=== PATIENT | male | born 1940 | race Caucasian/White ===

== ENCOUNTER → 2016-12-11 | Outpatient (CLI) | payer OTHER ==
[~2016-12-11] VITALS: Ht 160 cm; Wt 52.2 kg
[~2016-12-11] MED LIST: BREO ELLIPTA 21 EACH IH; CENTRUM SILVER1 EAC1 PO; CYANOCOBALAM1000 MCG PO; FLOMAX0.4 MG PO; INCRUSE ELLI62.5 MCG IH; NEXIUM40 MG PO; OCUVITE TABLET1 EACH PO; SERTRALINE HCL50 MG PO; VITAMIN D-32000 UNI1 PO
[2016-12-11 11:05] LABS: HEMATOCRIT 37.6 % (38.0-50.0); MCH 30.4 PG (29.0-34.0); MCHC 31.6 G/DL (30.0-36.0); MCV 95.9 FL (86-99); PLATELET COUNT 376 K/uL (156-360); RBC DIS.WIDTH-CV 14.4 % (11.8-14.6); RBC DIS.WIDTH-SD 50.1 % (39-53); RED BLOOD COUNT 3.92 M/uL (4.00-5.50); WHITE BLOOD COUNT 16.5 K/uL (4.1-10.2)
[2016-12-11 11:14] LABS: INTER. NORMALIZED RATIO 1.2; PTT 34.3 (25-32)
== END | disposition home or self-care (01) ==
LOC: AMB 10:27
PROVIDERS: Internal Medicine Pulmonary Disease
DX: J18.9 Pneumonia, unspecified organism (principal); J44.9 Chronic obstructive pulmonary disease, unspecified; Z87.891 Personal history of nicotine dependence; Z85.01 Personal history of malignant neoplasm of esophagus
CPT/HCPCS: 71010; 76001; 85027; 85610; 85730; 87070; 87102; 87116; 87205; 87206; 87278; 88108; 88305; J2250; J3010

== ENCOUNTER 2017-01-19 19:01 | Observation (INO) | payer OTHER ==
[~2017-01-19] VITALS: Ht 160 cm; Wt 48.4 kg
[2017-01-19 19:38] LABS: HEMATOCRIT 36.8 % (38.0-50.0); MCH 30.9 PG (29.0-34.0); MCHC 32.9 G/DL (30.0-36.0); MCV 94.1 FL (86-99); MEAN PLAT.VOLUME 8.1 uM^3 (9.0-12.4); PLATELET COUNT 353 K/uL (156-360); RBC DIS.WIDTH-CV 13.7 % (11.8-14.6); RBC DIS.WIDTH-SD 47.4 % (39-53); RED BLOOD COUNT 3.91 M/uL (4.00-5.50); WHITE BLOOD COUNT 13.9 K/uL (4.1-10.2)
[2017-01-19 19:48] LABS: CHLORIDE 102 mEq/L (99-109); SODIUM 131 mEq/L (136-147)
[2017-01-19 19:50] LABS: GLUCOSE 126 mg/dL (70-99)
[2017-01-19 19:51] LABS: ANION GAP 8 MEQ/L (2-14)
[2017-01-19 19:53] LABS: GFR ESTIMATE (CALCULATED) 48 mL/min/
[2017-01-19 19:54] LABS: UREA NITROGEN (BUN) 33 mg/dL (9-23)
[2017-01-19] MEDS ORDERED: BREO ELLIPTA I1 EACH IH (21:19)
[2017-01-19] MEDS ORDERED: VITAMIN D32000 UNI1 PO (21:19)
[2017-01-19] MEDS ORDERED: INCRUSE ELLI62.5 MCG IH (21:20)
[2017-01-19] MEDS ORDERED: PEN-VEE K,VEET500 MG PO (21:20)
[2017-01-19] MEDS ORDERED: CIPRO500 MG PO (21:20)
[2017-01-19] MEDS ORDERED: IPRATROPIUM BRO15 ML BOTH NARES (21:20)
[2017-01-19] MEDS ORDERED: VENTOLIN HFA18 GM IH (21:21)
[2017-01-20] VITALS: BP 107/57
[2017-01-20 04:12] VITALS: BP 100/57
[2017-01-20 05:51] LABS: HEMATOCRIT 32.1 % (38.0-50.0); MCH 31.2 PG (29.0-34.0); MCHC 32.4 G/DL (30.0-36.0); MCV 96.4 FL (86-99); MEAN PLAT.VOLUME 8.6 uM^3 (9.0-12.4); PLATELET COUNT 321 K/uL (156-360); RBC DIS.WIDTH-CV 13.8 % (11.8-14.6); RBC DIS.WIDTH-SD 49.1 % (39-53); RED BLOOD COUNT 3.33 M/uL (4.00-5.50); WHITE BLOOD COUNT 9.3 K/uL (4.1-10.2)
[2017-01-20 06:16] LABS: ALKALINE PHOSPHATASE 111 IU/L (3-129); ANION GAP 5 MEQ/L (2-14); CHLORIDE 107 MEQ/L (99-109); GFR ESTIMATE (CALCULATED) > 59 mL/min/; GLUCOSE 134 mg/dL (70-99); POTASSIUM 4.3 MEQ/L (3.7-5.4); SAMPLE HEMOLYSIS CHECK 0; SAMPLE ICTERIC CHECK 0; SAMPLE LIPEMIA CHECK 0; SODIUM 134 MEQ/L (136-147); TOTAL BILIRUBIN 0.3 MG/DL (0.0-1.0); UREA NITROGEN (BUN) 28 mg/dL (9-23)
[2017-01-20 08:00] VITALS: BP 98/59
[2017-01-20 12:00] VITALS: BP 99/58
== END 2017-01-20 16:17 | disposition home or self-care (01) ==
LOC: EME 19:01 → EDOF 22:10 → 5SOUTH 23:42
PROVIDERS: Internal Medicine
DX: N17.9 Acute kidney failure, unspecified (principal); J18.9 Pneumonia, unspecified organism; R63.4 Abnormal weight loss; E86.0 Dehydration; Z87.19 Personal history of other diseases of the digestive system; Z93.2 Ileostomy status; E87.1 Hypo-osmolality and hyponatremia; D64.9 Anemia, unspecified; J47.9 Bronchiectasis, uncomplicated; R91.8 Other nonspecific abnormal finding of lung field; Z85.01 Personal history of malignant neoplasm of esophagus; J44.9 Chronic obstructive pulmonary disease, unspecified; F32.9 Major depressive disorder, single episode, unspecified
CPT/HCPCS: 71020; 80048; 80053; 81003; 82948; 85027; 94640; 94640 76; 99202; 99281; 99285; G0378; J1644; J7030; S0028

== ENCOUNTER 2017-01-29 19:24 | Inpatient (IN) | payer OTHER ==
[~2017-01-29] VITALS: Ht 160 cm; Wt 48.0 kg
[~2017-01-29 19:24] MED LIST changes: +BREO ELLIPTA I1 EACH IH; +CIPRO500 MG PO; +IPRATROPIUM BRO15 ML BOTH NARES; +PEN-VEE K,VEET500 MG PO; +VENTOLIN HFA18 GM IH; +VITAMIN D32000 UNI1 PO
[2017-01-29 20:28] LABS: HEMATOCRIT 37.5 % (38.0-50.0); MCH 30.1 PG (29.0-34.0); MCHC 32.3 G/DL (30.0-36.0); MCV 93.3 FL (86-99); MEAN PLAT.VOLUME 8.3 uM^3 (9.0-12.4); PLATELET COUNT 389 K/uL (156-360); RBC DIS.WIDTH-CV 13.2 % (11.8-14.6); RBC DIS.WIDTH-SD 45.2 % (39-53); WHITE BLOOD COUNT 16.3 K/uL (4.1-10.2)
[2017-01-29 20:34] LABS: RED BLOOD COUNT 4.02 M/uL (4.00-5.50)
[2017-01-29 20:38] LABS: CHLORIDE 102 mEq/L (99-109); POTASSIUM 4.2 mEq/L (3.7-5.4); SODIUM 132 mEq/L (136-147)
[2017-01-29 20:40] LABS: GLUCOSE 113 mg/dL (70-99)
[2017-01-29 20:41] LABS: ANION GAP 10 MEQ/L (2-14)
[2017-01-29 20:44] LABS: GFR ESTIMATE (CALCULATED) 57 mL/min/; UREA NITROGEN (BUN) 30 mg/dL (9-23)
[2017-01-29 22:16] LABS: TROP-I INTERPRETATION NEGATIVE; TROPONIN-I 0.01 ng/mL (0.0-0.30)
[2017-01-29] MEDS ORDERED: REFRESH EYE DR1 EACH BOTH EYES (23:33)
[2017-01-30] VITALS (7 sets, daily range): BP systolic 82–110; BP diastolic 46–59
[2017-01-30 00:40] LABS: TOTAL BILIRUBIN 0.2 mg/dL (0.0-1.0)
[2017-01-30 00:41] LABS: ALKALINE PHOSPHATASE 150 IU/L (3-129)
[2017-01-30 00:44] LABS: DIRECT BILIRUBIN 0.2 mg/dL (0.0-0.3)
[2017-01-30 04:00] LABS: ADD MIUA? YES; BILIRUBIN NEGATIVE; BLOOD NEGATIVE; COLOR YELLOW ((YELLOW)); GLUCOSE (STRIP) NEGATIVE; KETONES 5; LEUKOCYTES NEGATIVE; NITRITE NEGATIVE; PROTEIN (STRIP) NEGATIVE; SPECIFIC GRAVITY 1.042 (1.000-1.030); UROBILINOGEN 0.2 MG/DL (0.2-1.0)
[2017-01-30 04:04] LABS: BACTERIA 2+ /HPF; EPITHELIAL CELLS NONE SEEN /HPF; HYALINE CASTS 0-5 /LPF; MUCUS TRACE /LPF; WHITE BLOOD CELLS 0-5 /HPF (0-5)
[2017-01-30 04:25] LABS: EOSINOPHIL (%) 0.2 % (0-5); HEMATOCRIT 30.9 % (38.0-50.0); IMMATURE GRANULOCYTE (%) 1.6 % (0.0-0.7); IMMATURE GRANULOCYTE COUNT 0.2 K/uL; INSTRUMENT ABS NEUTROPHIL CT 11.9 K/uL; LYMPHOCYTE COUNT 0.5 K/uL (1.0-2.8); MCH 30.5 PG (29.0-34.0); MCHC 32.4 G/DL (30.0-36.0); MCV 94.2 FL (86-99); MEAN PLAT.VOLUME 8.2 uM^3 (9.0-12.4); MONOCYTE (%) 5.7 % (3-12); MONOCYTE COUNT 0.8 K/uL (0-0.8); NEUTROPHIL (%) 88.8 % (45-76); NEUTROPHIL COUNT 11.9 K/uL (1.8-6.4); PLATELET COUNT 333 K/uL (156-360); RBC DIS.WIDTH-CV 13.4 % (11.8-14.6); RBC DIS.WIDTH-SD 46.5 % (39-53); RED BLOOD COUNT 3.28 M/uL (4.00-5.50); WHITE BLOOD COUNT 13.4 K/uL (4.1-10.2)
[2017-01-30 04:30] LABS: CHLORIDE 108 mEq/L (99-109); POTASSIUM 3.9 mEq/L (3.7-5.4); SODIUM 133 mEq/L (136-147)
[2017-01-30 04:31] LABS: MAGNESIUM 1.3 mg/dL (1.3-2.7)
[2017-01-30 04:32] LABS: GLUCOSE 104 mg/dL (70-99)
[2017-01-30 04:33] LABS: ANION GAP 7 MEQ/L (2-14)
[2017-01-30 04:36] LABS: GFR ESTIMATE (CALCULATED) > 59 mL/min/
[2017-01-30 04:37] LABS: UREA NITROGEN (BUN) 23 mg/dL (9-23)
[2017-01-30 07:55] LABS: INTACT PARATHYROID HORMONE 12 pg/mL (10-69)
[2017-01-31 05:34] LABS: HEMATOCRIT 29.2 % (38.0-50.0); MCH 30.9 PG (29.0-34.0); MCHC 32.5 G/DL (30.0-36.0); MCV 95.1 FL (86-99); MEAN PLAT.VOLUME 8.5 uM^3 (9.0-12.4); PLATELET COUNT 318 K/uL (156-360); RBC DIS.WIDTH-CV 13.7 % (11.8-14.6); RBC DIS.WIDTH-SD 47.5 % (39-53); RED BLOOD COUNT 3.07 M/uL (4.00-5.50); WHITE BLOOD COUNT 9.5 K/uL (4.1-10.2)
[2017-01-31 05:43] VITALS: BP 98/54
[2017-01-31 05:55] LABS: ANION GAP 6 MEQ/L (2-14); CHLORIDE 112 MEQ/L (99-109); GFR ESTIMATE (CALCULATED) > 59 mL/min/; GLUCOSE 105 mg/dL (70-99); POTASSIUM 3.5 MEQ/L (3.7-5.4); SAMPLE HEMOLYSIS CHECK 0; SAMPLE ICTERIC CHECK 0; SAMPLE LIPEMIA CHECK 0; SODIUM 138 MEQ/L (136-147); UREA NITROGEN (BUN) 15 mg/dL (9-23)
[2017-01-31 08:00] VITALS: BP 111/58
[2017-01-31 11:25] VITALS: BP 111/56
[2017-01-31 16:32] VITALS: BP 125/57
[2017-01-31 21:16] VITALS: BP 99/55
[2017-02-01 01:57] VITALS: BP 97/56
[2017-02-01 03:19] VITALS: BP 101/58
[2017-02-01 04:19] VITALS: BP 115/56
[2017-02-01 07:43] VITALS: BP 104/59
[2017-02-01 14:12] VITALS: BP 104/62
[2017-02-01] MEDS ORDERED: MIDODRINE HCL5 MG PO (14:15)
[2017-02-01] MEDS ORDERED: VORICONAZOLE200 MG PO (14:15)
[2017-02-01] MEDS ORDERED: MEGACE20 MG PO (14:15)
[2017-02-03 18:14] LABS: Coccidioides Ab, CF <1:2 (<1:2); Coccidioides Ab, ID Negative (Negative)
== END 2017-02-01 15:31 | disposition home or self-care (01) | DRG 682 ==
LOC: EME 19:24 → 5WEST 01-30 00:06 → EDOF 01-30 00:06 → 5WEST 01-30 01:00
PROVIDERS: Emergency Medicine; Hospitalist; Nurse Practitioner Adult Health
DX: N17.9 Acute kidney failure, unspecified (principal); J85.1 Abscess of lung with pneumonia; J85.0 Gangrene and necrosis of lung; J18.0 Bronchopneumonia, unspecified organism; I95.9 Hypotension, unspecified; E87.1 Hypo-osmolality and hyponatremia; J47.0 Bronchiectasis with acute lower respiratory infection; J44.0 Chronic obstructive pulmonary disease with (acute) lower respiratory infection; R55 Syncope and collapse; R63.4 Abnormal weight loss; E83.52 Hypercalcemia; E86.0 Dehydration; I77.810 Thoracic aortic ectasia; K21.9 Gastro-esophageal reflux disease without esophagitis; Z68.1 Body mass index [BMI] 19.9 or less, adult; Z80.1 Family history of malignant neoplasm of trachea, bronchus and lung; Z85.01 Personal history of malignant neoplasm of esophagus; Z87.891 Personal history of nicotine dependence; Z93.3 Colostomy status; M19.90 Unspecified osteoarthritis, unspecified site; R63.0 Anorexia
CPT/HCPCS: 71010; 71020; 71275; 77012; 80048; 80076; 81003; 82306; 83605; 83735; 83970; 84100; 84484; 85025; 85027; 86635 90; 87040; 87070; 87075; 87102; 87116; 87205; 87206; 87899; 88305; 88312; 93005; 99202; 99281; 99285; G0378; G8978 GP CI; G8979 GP CH; G8987 GO CH; G8988 GO CH; G8989 GO CH; J0456; J0696; J1644; J3010; J3475; J7030; J7050

== ENCOUNTER 2017-02-28 17:09 | Inpatient (IN) | payer OTHER ==
[~2017-02-28] VITALS: Ht 160 cm; Wt 50.4 kg
[~2017-02-28 17:09] MED LIST changes: +MEGACE20 MG PO; +MIDODRINE HCL5 MG PO; +REFRESH EYE DR1 EACH BOTH EYES; +VORICONAZOLE200 MG PO
[2017-02-28 18:28] LABS: HEMATOCRIT 29.2 % (38.0-50.0); MCH 29.3 PG (29.0-34.0); MCHC 32.2 G/DL (30.0-36.0); MEAN PLAT.VOLUME 8.8 uM^3 (9.0-12.4); PLATELET COUNT 443 K/uL (156-360); RBC DIS.WIDTH-SD 46.7 % (39-53); RED BLOOD COUNT 3.21 M/uL (4.00-5.50); WHITE BLOOD COUNT 19.9 K/uL (4.1-10.2)
[2017-02-28 18:34] LABS: CHLORIDE 105 mEq/L (99-109); POTASSIUM 4.2 mEq/L (3.7-5.4); SODIUM 133 mEq/L (136-147)
[2017-02-28 18:35] LABS: GLUCOSE 171 mg/dL (70-99)
[2017-02-28 18:37] LABS: ANION GAP 9 MEQ/L (2-14)
[2017-02-28 18:39] LABS: GFR ESTIMATE (CALCULATED) > 59 mL/min/
[2017-02-28 18:40] LABS: UREA NITROGEN (BUN) 33 mg/dL (9-23)
[2017-02-28 21:35] LABS: ADD MIUA? YES; BILIRUBIN NEGATIVE; BLOOD NEGATIVE; COLOR YELLOW ((YELLOW)); GLUCOSE (STRIP) NEGATIVE; KETONES NEGATIVE; LEUKOCYTES NEGATIVE; NITRITE NEGATIVE; PROTEIN (STRIP) 100; SPECIFIC GRAVITY 1.018 (1.000-1.030); UROBILINOGEN 0.2 MG/DL (0.2-1.0)
[2017-02-28 22:00] LABS: RED BLOOD CELLS 0-5 /HPF (0-5)
[2017-02-28 22:02] LABS: BACTERIA RARE /HPF; CASTS PRESENT /LPF; CRYSTALS NONE SEEN; MUCUS NONE SEEN /LPF; UCUL ADDED? NO; WHITE BLOOD CELLS 0-5 /HPF (0-5)
[2017-02-28 22:03] LABS: HYALINE CASTS 0-5 /LPF
[2017-02-28 22:04] LABS: EPITHELIAL CELLS 1+ /HPF
[2017-02-28 22:40] LABS: TOTAL BILIRUBIN 0.3 mg/dL (0.0-1.0)
[2017-02-28 22:41] LABS: ALKALINE PHOSPHATASE 177 IU/L (3-129)
[2017-02-28 22:44] LABS: DIRECT BILIRUBIN 0.2 mg/dL (0.0-0.3)
[2017-02-28] MEDS ORDERED: FLOMAX0.4 MG PO (23:12)
[2017-03-01 01:32] VITALS: BP 107/63
[2017-03-01 03:41] VITALS: BP 110/82
[2017-03-01 06:32] LABS: EOSINOPHIL (%) 0.5 % (0-5); EOSINOPHIL COUNT 0.1 K/uL (0-0.3); HEMATOCRIT 26.9 % (38.0-50.0); IMMATURE GRANULOCYTE COUNT 0.1 K/uL; INSTRUMENT ABS NEUTROPHIL CT 11.5 K/uL; LYMPHOCYTE COUNT 0.7 K/uL (1.0-2.8); MCH 29.5 PG (29.0-34.0); MCV 92.1 FL (86-99); MEAN PLAT.VOLUME 8.9 uM^3 (9.0-12.4); MONOCYTE (%) 5.5 % (3-12); MONOCYTE COUNT 0.7 K/uL (0-0.8); NEUTROPHIL (%) 87.2 % (45-76); NEUTROPHIL COUNT 11.5 K/uL (1.8-6.4); PLATELET COUNT 405 K/uL (156-360); RBC DIS.WIDTH-CV 13.9 % (11.8-14.6); RBC DIS.WIDTH-SD 47.5 % (39-53); RED BLOOD COUNT 2.92 M/uL (4.00-5.50); WHITE BLOOD COUNT 13.1 K/uL (4.1-10.2)
[2017-03-01 06:47] LABS: POINT-OF-CARE METER ID UU14117124
[2017-03-01 06:56] LABS: ALKALINE PHOSPHATASE 133 IU/L (3-129); ANION GAP 6 MEQ/L (2-14); CHLORIDE 109 MEQ/L (99-109); GFR ESTIMATE (CALCULATED) > 59 mL/min/; HDL CHOLESTEROL 32 MG/DL (Desirable>=40); IRON 18 MCG/DL (35-150); LDL CHOLESTEROL 53 mg/dL (Desirable<100); MAGNESIUM 1.8 mg/dl (1.3-2.7); NON-HDL CHOLESTEROL 65 mg/dL (Desirable<160); POTASSIUM 4.6 MEQ/L (3.7-5.4); SAMPLE HEMOLYSIS CHECK 0; SAMPLE ICTERIC CHECK 0; SAMPLE LIPEMIA CHECK 0; SODIUM 138 MEQ/L (136-147); TOTAL BILIRUBIN 0.4 MG/DL (0.0-1.0); TOTAL CHOLESTEROL 97 mg/dL (Desirable<200); TRIGLYCERIDES 61 MG/DL (Normal: <150); UREA NITROGEN (BUN) 27 mg/dL (9-23)
[2017-03-01 06:58] LABS: GLUCOSE 90 mg/dL (70-99)
[2017-03-01 07:09] LABS: Estimated Average Glucose 140 mg/dL (70-123); HEMOGLOBIN A1c (GLYCOHEMOGLOB) 6.5 % HGB (Below 5.7)
[2017-03-01 07:28] VITALS: BP 107/59
[2017-03-01 11:15] VITALS: BP 104/59
[2017-03-01 14:26] LABS: POC NON-PRINT COM 1 ND
[2017-03-01 15:37] VITALS: BP 96/52
[2017-03-01 19:35] VITALS: BP 103/55
[2017-03-02 01:05] VITALS: BP 104/57
[2017-03-02 05:06] VITALS: BP 103/59
[2017-03-02 08:41] VITALS: BP 106/67
[2017-03-02 12:28] VITALS: BP 113/65
[2017-03-02 16:26] VITALS: BP 108/57
[2017-03-02 23:11] VITALS: BP 126/70
[2017-03-03 04:21] VITALS: BP 111/74
[2017-03-03 06:37] LABS: HEMATOCRIT 23.5 % (38.0-50.0); MCH 28.8 PG (29.0-34.0); MCHC 31.5 G/DL (30.0-36.0); MCV 91.4 FL (86-99); MEAN PLAT.VOLUME 8.8 uM^3 (9.0-12.4); PLATELET COUNT 353 K/uL (156-360); RBC DIS.WIDTH-CV 14.1 % (11.8-14.6); RBC DIS.WIDTH-SD 47.6 % (39-53); RED BLOOD COUNT 2.57 M/uL (4.00-5.50); WHITE BLOOD COUNT 12.5 K/uL (4.1-10.2)
[2017-03-03 07:03] LABS: ANION GAP 4 MEQ/L (2-14); CHLORIDE 108 MEQ/L (99-109); GFR ESTIMATE (CALCULATED) > 59 mL/min/; POTASSIUM 4.1 MEQ/L (3.7-5.4); SAMPLE HEMOLYSIS CHECK 0; SAMPLE ICTERIC CHECK 0; SAMPLE LIPEMIA CHECK 0; SODIUM 137 MEQ/L (136-147); UREA NITROGEN (BUN) 29 mg/dL (9-23)
[2017-03-03 07:04] LABS: GLUCOSE 180 mg/dL (70-99)
[2017-03-03 08:35] VITALS: BP 117/60
[2017-03-03 12:14] VITALS: BP 104/56
[2017-03-03 16:30] VITALS: BP 125/60
[2017-03-03 23:27] VITALS: BP 108/58
[2017-03-04 07:48] LABS: HEMATOCRIT 24.8 % (38.0-50.0); MCH 30.5 PG (29.0-34.0); MCHC 32.7 G/DL (30.0-36.0); MCV 93.2 FL (86-99); MEAN PLAT.VOLUME 8.9 uM^3 (9.0-12.4); PLATELET COUNT 386 K/uL (156-360); RBC DIS.WIDTH-CV 14.2 % (11.8-14.6); RBC DIS.WIDTH-SD 48.1 % (39-53); RED BLOOD COUNT 2.66 M/uL (4.00-5.50); WHITE BLOOD COUNT 15.8 K/uL (4.1-10.2)
[2017-03-04 08:16] LABS: ANION GAP 8 MEQ/L (2-14); CHLORIDE 108 MEQ/L (99-109); GFR ESTIMATE (CALCULATED) > 59 mL/min/; GLUCOSE 147 mg/dL (70-99); POTASSIUM 3.9 MEQ/L (3.7-5.4); SAMPLE HEMOLYSIS CHECK 0; SAMPLE ICTERIC CHECK 0; SAMPLE LIPEMIA CHECK 0; SODIUM 139 MEQ/L (136-147); UREA NITROGEN (BUN) 27 mg/dL (9-23)
[2017-03-04 08:44] VITALS: BP 121/58
[2017-03-04] MEDS ORDERED: FERROUS SULFAT325 MG PO (16:11)
[2017-03-04 16:21] VITALS: BP 110/61
[2017-03-04] MEDS ORDERED: VFEND50 MG PO (18:02)
== END 2017-03-04 19:33 | disposition home or self-care (01) | DRG 190 ==
LOC: EME 17:09 → 3EAST 21:23 → EDOF 21:23 → ENRESERV 21:25 → 3EAST 23:24
PROVIDERS: Emergency Medicine; Hospitalist; Internal Medicine; Physician Assistant; Physician Assistant Medical
DX: J44.0 Chronic obstructive pulmonary disease with (acute) lower respiratory infection (principal); J16.8 Pneumonia due to other specified infectious organisms; J85.0 Gangrene and necrosis of lung; B44.9 Aspergillosis, unspecified; J15.9 Unspecified bacterial pneumonia; E46 Unspecified protein-calorie malnutrition; J47.0 Bronchiectasis with acute lower respiratory infection; L98.9 Disorder of the skin and subcutaneous tissue, unspecified; Z85.01 Personal history of malignant neoplasm of esophagus; D64.9 Anemia, unspecified; N40.0 Benign prostatic hyperplasia without lower urinary tract symptoms; E87.1 Hypo-osmolality and hyponatremia; R73.9 Hyperglycemia, unspecified; I95.9 Hypotension, unspecified; R00.0 Tachycardia, unspecified; E86.0 Dehydration; Z68.1 Body mass index [BMI] 19.9 or less, adult; Z90.49 Acquired absence of other specified parts of digestive tract; Z93.2 Ileostomy status; Z87.891 Personal history of nicotine dependence; B47.9 Mycetoma, unspecified; K51.90 Ulcerative colitis, unspecified, without complications; J44.1 Chronic obstructive pulmonary disease with (acute) exacerbation; Z80.1 Family history of malignant neoplasm of trachea, bronchus and lung; Z79.899 Other long term (current) drug therapy; Z96.651 Presence of right artificial knee joint; Z96.642 Presence of left artificial hip joint; R65.10 Systemic inflammatory response syndrome (SIRS) of non-infectious origin without acute organ dysfunction
CPT/HCPCS: 36415; 71020; 80048; 80053; 80061; 80076; 81003; 82272; 82607; 82746; 82785 90; 82948; 83036; 83540; 83605; 83735; 84100; 84145 90; 84466; 85025; 85027; 86900; 86901; 86920; 87040; 87070; 87103; 87205; 87305 90; 94640; 94640 76; 99202; 99281; 99285; J1644; J1815; J1956; J2248; J2543; J2920; J7030; J7050; J7120

== ENCOUNTER 2017-08-29 16:02 | Emergency (ER) | payer OTHER ==
[~2017-08-29] VITALS: Ht 160 cm; Wt 61.9 kg
[~2017-08-29 16:02] MED LIST changes: +FERROUS SULFAT325 MG PO; +VFEND50 MG PO
[2017-08-29] MEDS ORDERED: ITRACONAZOLE100 MG PO (16:10)
[2017-08-29 16:36] LABS: HEMATOCRIT 29.3 % (38.0-50.0); HEMOGLOBIN 9.6 G/DL (12.5-16.6); MCH 30.7 PG (29.0-34.0); MCHC 32.8 G/DL (30.0-36.0); MCV 93.6 FL (86-99); PLATELET COUNT 219 K/uL (156-360); RBC DIS.WIDTH-CV 14.8 % (11.8-14.6); RBC DIS.WIDTH-SD 50.5 % (39-53); RED BLOOD COUNT 3.13 M/uL (4.00-5.50); WHITE BLOOD COUNT 10.9 K/uL (4.1-10.2)
[2017-08-29 16:45] LABS: CHLORIDE 109 mEq/L (99-109); MAGNESIUM 1.7 mg/dL (1.3-2.7); POTASSIUM 3.6 mEq/L (3.7-5.4); SODIUM 137 mEq/L (136-147)
[2017-08-29 16:47] LABS: GLUCOSE 99 mg/dL (70-99)
[2017-08-29 16:50] LABS: CREATININE 0.8 mg/dL (0.6-1.3); GFR ESTIMATE (CALCULATED) > 59 mL/min/ (58.99-99999)
[2017-08-29 16:51] LABS: UREA NITROGEN (BUN) 19 mg/dL (9-23)
[2017-08-29 16:57] LABS: TROP-I INTERPRETATION NEGATIVE; TROPONIN-I 0.02 ng/mL (0.0-0.30)
[2017-08-29] MEDS ORDERED: LEVAQUIN750 MG PO (19:58)
[2017-08-29 20:09] VITALS: BP 166/73
== END 2017-08-29 20:09 | disposition home or self-care (01) ==
LOC: EME 16:02
PROVIDERS: Emergency Medicine
DX: J18.9 Pneumonia, unspecified organism (principal); R60.0 Localized edema; R03.0 Elevated blood-pressure reading, without diagnosis of hypertension; Z87.01 Personal history of pneumonia (recurrent); Z85.01 Personal history of malignant neoplasm of esophagus; Z90.49 Acquired absence of other specified parts of digestive tract; Z93.2 Ileostomy status; Z87.891 Personal history of nicotine dependence
CPT/HCPCS: 71046; 80048; 83735; 84484; 85027; 93005; 99281; 99285

== ENCOUNTER 2018-01-27 16:43 | Inpatient (IN) | payer OTHER ==
[~2018-01-27] VITALS: Ht 160 cm; Wt 50.4 kg
[~2018-01-27 16:43] MED LIST changes: +AUGMENTIN875 MG PO; +ITRACONAZOLE100 MG PO; +KLOR-CON 88 MEQ PO; +LEVAQUIN750 MG PO; +OCUVITE LUTEIN1 EAC2 PO; +VITAMIN B122500 MCG PO
[2018-01-27 17:24] LABS: HEMOGLOBIN 10.4 G/DL (12.5-16.6); MCH 28.5 PG (29.0-34.0); MCHC 31.5 G/DL (30.0-36.0); MCV 90.4 FL (86-99); RBC DIS.WIDTH-CV 15.3 % (11.8-14.6); RBC DIS.WIDTH-SD 50.4 % (39-53); RED BLOOD COUNT 3.65 M/uL (4.00-5.50)
[2018-01-27 17:40] LABS: CHLORIDE 108 mEq/L (99-109); POTASSIUM 4.8 mEq/L (3.7-5.4); SODIUM 136 mEq/L (136-147)
[2018-01-27 17:42] LABS: GLUCOSE 102 mg/dL (70-99)
[2018-01-27 17:43] LABS: PLATELET COUNT 358 K/uL (156-360)
[2018-01-27 17:46] LABS: CREATININE 1.1 mg/dL (0.6-1.3); GFR ESTIMATE (CALCULATED) > 59 mL/min/ (58.99-99999)
[2018-01-27 17:47] LABS: UREA NITROGEN (BUN) 37 mg/dL (9-23)
[2018-01-27 23:29] VITALS: BP 132/68
[2018-01-28 03:29] VITALS: BP 100/57
[2018-01-28 06:31] LABS: BASOPHIL (%) 0.2 % (0-1); EOSINOPHIL (%) 0.4 % (0-5); EOSINOPHIL COUNT 0.1 K/uL (0-0.3); HEMOGLOBIN 10.6 G/DL (12.5-16.6); IMMATURE GRANULOCYTE (%) 0.7 % (0.0-0.7); LYMPHOCYTE (%) 4.9 % (15-42); LYMPHOCYTE COUNT 0.8 K/uL (1.0-2.8); MCHC 31.2 G/DL (30.0-36.0); MCV 89.7 FL (86-99); MONOCYTE (%) 4.5 % (3-12); MONOCYTE COUNT 0.7 K/uL (0-0.8); NEUTROPHIL (%) 89.3 % (45-76); NEUTROPHIL COUNT 14.4 K/uL (1.8-6.4); PLATELET COUNT 374 K/uL (156-360); RBC DIS.WIDTH-CV 15.4 % (11.8-14.6); RBC DIS.WIDTH-SD 50.4 % (39-53); RED BLOOD COUNT 3.79 M/uL (4.00-5.50); WHITE BLOOD COUNT 16.1 K/uL (4.1-10.2)
[2018-01-28 07:03] LABS: ALBUMIN 3.3 G/DL (3.2-4.8); ALKALINE PHOSPHATASE 152 IU/L (3-129); ALT (GPT) 11 IU/L (3-49); AST (GOT) 12 IU/L (2-34); CHLORIDE 106 MEQ/L (99-109); GFR ESTIMATE (CALCULATED) > 59 mL/min/ (58.99-99999); GLUCOSE 115 mg/dL (70-99); POTASSIUM 4.5 MEQ/L (3.7-5.4); SODIUM 137 MEQ/L (136-147); TOTAL PROTEIN 7.9 G/DL (6.4-8.3); UREA NITROGEN (BUN) 28 mg/dL (9-23)
[2018-01-28 07:03] LABS: ALBUMIN 3.4 G/DL (3.2-4.8); ALKALINE PHOSPHATASE 155 IU/L (3-129); ALT (GPT) 11 IU/L (3-49); AST (GOT) 12 IU/L (2-34); CHLORIDE 105 MEQ/L (99-109); CREATININE 0.9 MG/DL (0.6-1.3); DIRECT BILIRUBIN 0.1 mg/dL (0.0-0.3); GFR ESTIMATE (CALCULATED) > 59 mL/min/ (58.99-99999); GLUCOSE 117 mg/dL (70-99); MAGNESIUM 1.9 mg/dl (1.3-2.7); PHOSPHORUS 2.9 mg/dL (2.5-4.9); POTASSIUM 4.4 MEQ/L (3.7-5.4); PREALBUMIN 12.5 mg/dL (10-40); SODIUM 136 MEQ/L (136-147); TOTAL PROTEIN 8.3 G/DL (6.4-8.3); TRIGLYCERIDES 101 MG/DL (Normal: <150); UREA NITROGEN (BUN) 28 mg/dL (9-23)
[2018-01-28 07:04] LABS: TOTAL BILIRUBIN 0.5 MG/DL (0.0-1.0)
[2018-01-28 07:04] LABS: TOTAL BILIRUBIN 0.5 MG/DL (0.0-1.0)
[2018-01-28 07:15] LABS: APPEARANCE SL.HAZY ((CLEAR)); BILIRUBIN NEGATIVE; BLOOD LARGE; COLOR YELLOW ((YELLOW)); GLUCOSE (STRIP) NEGATIVE; KETONES 5; LEUKOCYTES NEGATIVE; NITRITE NEGATIVE; PROTEIN (STRIP) 30; SPECIFIC GRAVITY 1.046 (1.000-1.030); UROBILINOGEN 0.2 MG/DL (0.2-1.0)
[2018-01-28 07:36] LABS: BACTERIA NONE SEEN /HPF; CALCIUM OXALATE CRYSTALS 1+ /HPF; EPITHELIAL CELLS RARE /HPF; HYALINE CASTS 0-5 /LPF; MUCUS TRACE /LPF; RED BLOOD CELLS 40-50 /HPF (0-5); UCUL ADDED? NO; WHITE BLOOD CELLS 0-5 /HPF (0-5)
[2018-01-28 07:46] VITALS: BP 117/62
[2018-01-28 11:25] VITALS: BP 128/84
[2018-01-28] MEDS ORDERED: TAMSULOSIN HCL0.4 MG PO (12:00)
[2018-01-28] MEDS ORDERED: POTASSIUM CHLOR8 ME3 PO (12:00)
[2018-01-28] MEDS ORDERED: ADVIL,NUPRIN,M200 MG PO (12:02)
[2018-01-28 13:07] LABS: HEMATOCRIT 31.6 % (38.0-50.0); HEMOGLOBIN 9.7 G/DL (12.5-16.6)
[2018-01-28 15:55] VITALS: BP 108/57
[2018-01-28 23:03] VITALS: BP 124/68
[2018-01-29 06:33] LABS: BASOPHIL (%) 0.1 % (0-1); EOSINOPHIL (%) 0 % (0-5); HEMATOCRIT 28.7 % (38.0-50.0); LYMPHOCYTE (%) 4.1 % (15-42); LYMPHOCYTE COUNT 0.4 K/uL (1.0-2.8); MCH 28.2 PG (29.0-34.0); MCHC 31.4 G/DL (30.0-36.0); MONOCYTE (%) 1.3 % (3-12); MONOCYTE COUNT 0.1 K/uL (0-0.8); NEUTROPHIL (%) 93.5 % (45-76); NEUTROPHIL COUNT 8.3 K/uL (1.8-6.4); PLATELET COUNT 307 K/uL (156-360); RBC DIS.WIDTH-CV 15.3 % (11.8-14.6); RBC DIS.WIDTH-SD 50.2 % (39-53); RED BLOOD COUNT 3.19 M/uL (4.00-5.50); WHITE BLOOD COUNT 8.9 K/uL (4.1-10.2)
[2018-01-29 06:59] LABS: CHLORIDE 105 MEQ/L (99-109); CREATININE 0.8 MG/DL (0.6-1.3); GFR ESTIMATE (CALCULATED) > 59 mL/min/ (58.99-99999); MAGNESIUM 1.9 mg/dl (1.3-2.7); PHOSPHORUS 2.6 mg/dL (2.5-4.9); POTASSIUM 4.6 MEQ/L (3.7-5.4); SODIUM 133 MEQ/L (136-147); UREA NITROGEN (BUN) 29 mg/dL (9-23)
[2018-01-29 07:01] LABS: GLUCOSE 269 mg/dL (70-99)
[2018-01-29 08:25] VITALS: BP 127/64
[2018-01-29 16:33] VITALS: BP 151/84
[2018-01-29 23:21] VITALS: BP 145/67
[2018-01-30 06:39] LABS: BASOPHIL (%) 0.1 % (0-1); EOSINOPHIL (%) 0 % (0-5); HEMATOCRIT 24.9 % (38.0-50.0); HEMOGLOBIN 7.9 G/DL (12.5-16.6); LYMPHOCYTE (%) 3.1 % (15-42); LYMPHOCYTE COUNT 0.6 K/uL (1.0-2.8); MCH 28.4 PG (29.0-34.0); MCHC 31.7 G/DL (30.0-36.0); MCV 89.6 FL (86-99); MONOCYTE (%) 1.7 % (3-12); MONOCYTE COUNT 0.3 K/uL (0-0.8); NEUTROPHIL (%) 94.1 % (45-76); NEUTROPHIL COUNT 16.8 K/uL (1.8-6.4); PLATELET COUNT 285 K/uL (156-360); RBC DIS.WIDTH-CV 15.7 % (11.8-14.6); RBC DIS.WIDTH-SD 51.1 % (39-53); RED BLOOD COUNT 2.78 M/uL (4.00-5.50); WHITE BLOOD COUNT 17.8 K/uL (4.1-10.2)
[2018-01-30 07:05] LABS: CHLORIDE 106 MEQ/L (99-109); CREATININE 0.7 MG/DL (0.6-1.3); GFR ESTIMATE (CALCULATED) > 59 mL/min/ (58.99-99999); GLUCOSE 193 mg/dL (70-99); PHOSPHORUS 2.5 mg/dL (2.5-4.9); POTASSIUM 4.6 MEQ/L (3.7-5.4); SODIUM 135 MEQ/L (136-147); UREA NITROGEN (BUN) 32 mg/dL (9-23)
[2018-01-30 08:13] VITALS: BP 157/71
[2018-01-30 11:09] LABS: HEMATOCRIT 24.2 % (38.0-50.0); HEMOGLOBIN 7.6 G/DL (12.5-16.6)
[2018-01-30] MEDS ORDERED: CEFTIN500 MG PO (12:25)
[2018-01-30] MEDS ORDERED: PREDNISONE20 MG PO (12:25)
[2018-01-30] MEDS ORDERED: DOXYCYCLINE HY100 MG PO (12:25)
== END 2018-01-30 16:20 | disposition home or self-care (01) | DRG 194 ==
LOC: EME 16:43 → EDOF 21:46 → 3EAST 21:46 → CANRESERV 21:47 → ENRESERV 21:47 → 3EAST 23:19
PROVIDERS: Hospitalist; Physician Assistant
PROC: 3E0436Z Introduction of Nutritional Substance into Central Vein, Percutaneous Approach (ICD-10-PCS; principal; 2018-01-29)
DX: J15.9 Unspecified bacterial pneumonia (principal); E44.0 Moderate protein-calorie malnutrition; J44.0 Chronic obstructive pulmonary disease with (acute) lower respiratory infection; J16.8 Pneumonia due to other specified infectious organisms; J96.11 Chronic respiratory failure with hypoxia; K21.9 Gastro-esophageal reflux disease without esophagitis; K91.2 Postsurgical malabsorption, not elsewhere classified; N40.0 Benign prostatic hyperplasia without lower urinary tract symptoms; Z96.651 Presence of right artificial knee joint; Z96.642 Presence of left artificial hip joint; Z85.01 Personal history of malignant neoplasm of esophagus; Z87.891 Personal history of nicotine dependence; Z90.49 Acquired absence of other specified parts of digestive tract
CPT/HCPCS: 71045; 71046; 71275; 80048; 80053; 80076; 81003; 83735; 84100; 84134; 84478; 84630 90; 85014; 85018; 85025; 85027; 87651 90; 94799; 99281; 99284; G0378; J0456; J0696; J2920; J7512

== ENCOUNTER 2018-02-08 14:55 | Emergency (ER) | payer OTHER ==
[~2018-02-08] VITALS: Ht 160 cm; Wt 61.4 kg
[~2018-02-08 14:55] MED LIST changes: +ADVIL,NUPRIN,M200 MG PO; +CEFTIN500 MG PO; +DOXYCYCLINE HY100 MG PO; +POTASSIUM CHLOR8 ME3 PO; +PREDNISONE20 MG PO; +TAMSULOSIN HCL0.4 MG PO
[2018-02-08 15:48] LABS: HEMATOCRIT 26.2 % (38.0-50.0); HEMOGLOBIN 8.5 G/DL (12.5-16.6); MCHC 32.4 G/DL (30.0-36.0); MCV 89.4 FL (86-99); PLATELET COUNT 209 K/uL (156-360); RBC DIS.WIDTH-CV 17.5 % (11.8-14.6); RBC DIS.WIDTH-SD 56.9 % (39-53); RED BLOOD COUNT 2.93 M/uL (4.00-5.50); WHITE BLOOD COUNT 14.9 K/uL (4.1-10.2)
[2018-02-08 16:12] LABS: CHLORIDE 109 mEq/L (99-109); POTASSIUM 3.5 mEq/L (3.7-5.4); SODIUM 144 mEq/L (136-147)
[2018-02-08 16:14] LABS: GLUCOSE 101 mg/dL (70-99)
[2018-02-08 16:18] LABS: CREATININE 0.7 mg/dL (0.6-1.3); GFR ESTIMATE (CALCULATED) > 59 mL/min/ (58.99-99999)
[2018-02-08 16:19] LABS: UREA NITROGEN (BUN) 28 mg/dL (9-23)
[2018-02-08 16:49] LABS: TROP-I INTERPRETATION NEGATIVE; TROPONIN-I 0.01 ng/mL (0.0-0.30)
[2018-02-08] MEDS ORDERED: LASIX20 MG PO (20:20)
[2018-02-08 20:51] VITALS: BP 171/85
== END 2018-02-08 20:55 | disposition home or self-care (01) ==
LOC: EME 14:55
PROVIDERS: Family Medicine
DX: I50.9 Heart failure, unspecified (principal); R05 Cough; R60.0 Localized edema; R94.31 Abnormal electrocardiogram [ECG] [EKG]; Z85.01 Personal history of malignant neoplasm of esophagus; Z87.891 Personal history of nicotine dependence
CPT/HCPCS: 71046; 80048; 83880; 84484; 85027; 93005; 99281; 99285; J1940